=== PATIENT | female | born 1965 | race American Indian/Alaskan Native ===

== ENCOUNTER 2018-10-16 16:09 | Emergency (ER) | payer SELFPAY ==
[2018-10-16 16:18] VITALS: BP 115/80
[2018-10-16] MEDS ORDERED: PERCOCET 5/325 PO ONE (16:50)
[2018-10-16] MEDS ORDERED: PERCOCET 5/325 ONE (16:52)
[2018-10-16] MEDS ORDERED: TRIPLE ANTIBIOTIC TP ONE (17:43)
[2018-10-16] MEDS ORDERED: BOOSTRIX IM ONE (17:49)
--- NOTE | 2018-10-16 17:57 | Emergency Department Report ---
ED Upper Extremity Inj HPI - General Chief Complaint: Extremity Injury, Upper Stated Complaint: FINGER INJURY Time Seen by Provider: 10/16/18 17:27 Source: patient Mode of arrival: Ambulatory Limitations: No Limitations - History of Present Illness Initial Comments: Ms. Franklin is a 53-year-old female who crushed her left fourth and fifth digits while holding a ladder for her friend. Severe pain sudden onset. sudden onselt Bleeding controlled. Complaint: Injury to:: left, hand -: Sudden Other Extremity Injury: Fingers: Left Severity scale (0 -10): 10 Improves With: immobilization Context: crush - Related Data Allergies Allergy/AdvReac Type Severity Reaction Status Date / Time codeine Allergy Rash Verified 10/16/18 16:18 ED Review of Systems ROS: Stated complaint: FINGER INJURY Other details as noted in HPI Skin: denies: rash, lesions, change in color, change in hair/nails Neurological: numbness, paresthesias. denies: headache, weakness ED Past Medical Hx - Past Medical History Previous Medical History?: No - Surgical History Past Surgical History?: Yes Additional Surgical History: hysterectomy - Social History Smoking Status: Current Every Day Smoker Substance Use Type: Alcohol ED Physical Exam - General Limitations: No Limitations General appearance: alert, in no apparent distress - Neurological Exam Neurological exam: Present: alert, oriented X3 - Psychiatric Psychiatric exam: Present: normal affect, normal mood - Other Other exam information: Mildly edematous fourth and fifth digits without laceration without deformity, several small abrasions with mild edema intact sensation full range of motion ED Course Vital Signs 10/16/18 16:09 Temperature 97.9 F Pulse Rate 97 H Respiratory 22 Rate Blood Pressure 115/80 O2 Sat by Pulse 99 Oximetry ED Medical Decision Making - Medical Decision Making crush injury of the fingers neurovascularly intact no fracture according to my review of radiographs wound care provided patient also provided a sling pain control tetanus Critical care attestation.: If time is entered above; I have spent that time in minutes in the direct care of this critically ill patient, excluding procedure time. ED Disposition Clinical Impression: Crushed finger Disposition: DC-01 TO HOME OR SELFCARE Is pt being admited?: No Does the pt Need Aspirin: No Condition: Stable Instructions: Finger Sprain (ED)
--- NOTE | 2018-10-16 17:58 | XRay Report ---
FINAL REPORT EXAM: XR HAND 3+V LT HISTORY: pain TECHNIQUE: 3 views of left hand PRIORS: None. FINDINGS: No fracture is identified. No dislocation seen. Joint spaces are within normal limits. No erosive bon y change identified. Carpal bones maintain normal alignment. Distal radius and ulna are intact. No r adiopaque foreign bodies seen. IMPRESSION: Negative hand series
== END 2018-10-16 18:05 | disposition home or self-care (01) ==
LOC: ED 16:09
DX: S67.195A Crushing injury of left ring finger, initial encounter (principal); S67.197A Crushing injury of left little finger, initial encounter; F17.200 Nicotine dependence, unspecified, uncomplicated; Z90.710 Acquired absence of both cervix and uterus; Z88.5 Allergy status to narcotic agent; W23.1XXA Caught, crushed, jammed, or pinched between stationary objects, initial encounter; Y93.89 Activity, other specified; Y92.89 Other specified places as the place of occurrence of the external cause; Y99.8 Other external cause status
CPT/HCPCS: 90471; 90715; 99283; A6250